=== PATIENT | female | born 1995 ===

== ENCOUNTER 2016-12-29 16:04 | Inpatient (IN) ==
[2016-12-29] MEDS ORDERED: MEPERIDINE 50 MG/1 ML VIAL IV PRN (17:46)
[2016-12-29] MEDS ORDERED: ONDANSETRON 4 MG/2 ML VIAL IV PRN (17:46)
--- NOTE | 2016-12-29 17:55 | OB/GYN History & Physical ---
History of Present Illness Chief complaint: In for elective induction of labor. History of present illness: Ms. Kaye is a 21 year old female who is a 3 para 2 living 2. Her ANGIE is 12/28 by late ultrasound. Her estimated gestational age is 40 weeks and 1. The patient presented to the labor department with complaints of irregular uterine contractions. In light of her history the patient will be admitted for elective induction of labor due to term . The risk and benefits of been thoroughly discussed with this patient significant other, plan of care has been discussed with Dr. Arredondo and all parties are in agreement plan. The patient initiated care early at approximately 5 weeks however she did not keep any of her appointments until she was approximately 30 weeks when she resumed her care. After this time her care was routine and uneventful. She received her care through the [facility]. The patient has a history of smoking cigarettes and marijuana. She has had 2 previous vaginal deliveries and the largest infant weighed 7 pounds and 11 ounces. She reported no complications with either . Her last was November 2015. labs: The patient is O+, serologies nonreactive, rubella is immune, hepatitis B negative, HIV negative, the patient was treated for gonorrhea and chlamydia during this , GBS culture status unknown. Review of systems is negative with exception of above. Home Medications Medication Instructions Recorded Confirmed Type No Known Home Medications [No 12/29/16 12/29/16 History Known Home Medications] Allergies Allergy/AdvReac Type Severity Reaction Status Date / Time No Known Allergies Allergy Verified 12/01/16 15:08 12 point system: reviewed and no additional remarkable complaints except as stated Medical,Surgical,& Family Hx - Medical History Medical History: noncontributory Reproductive: No history of: Ectopic , Complication - Surgical History Surgical History: noncontributory Reproductive Surgeries: Patient denies;: Section - Family History Family History: Reports;: Family Diabetes (mgm pgm), Family Hypertension (pgm), Family Stroke (pgm) Denies;: Family Anesthesia Reaction, Family Cancer, Family Heart Disease - Social History Smoking Status: Current every day smoker Have you smoked in the last 12 months: Yes Type of Drug Use: Marijuana Marital Status: Single Lives With:: Significant Other Functional capacity: independent ambulation Exam MEDICAL TYPIST - Constitutional General appearance: no acute distress - Antepartum / Post Antepartum Exam Cervix - Dilatation: 3 cm Effacement: 70% Station: -1 Rupture: Intact Presentation: Vertex Heart Rate: 140s Breast: bilateral: normal Abdomen obstetrics: Present: bowel sounds normal Vagina: Present: normal moisture, discharge Cervix: Present: normal Uterus exam: Present: enlarged Anus/Rectum: Present: normal perianal skin - Respiratory Respiratory exam: Present: clear to auscultation bilaterally - Cardiovascular Cardiovascular exam: Present: regular rate and rhythm - GI/Abdominal GI/Abdominal exam: Present: normal bowel sounds, soft - Extremities Exam Extremities exam: Present: normal inspection - Neurological Exam Neurological exam: Present: alert, oriented X3 - Psychiatric Psychiatric exam: Present: normal affect, normal mood - Skin Skin exam: Present: normal color, warm Assessment and Plan (1) Postmaturity , 40-42 weeks gestation Status: Acute Assessment and plan: Admit IV fluids IV Pitocin per protocol Artificial rupture membranes when appropriate IV antibiotics prophylactically for unknown GBS status Epidural anesthesia if desired Internal monitors if indicated Anticipate Current Visit: Yes
[2016-12-29 18:11] LABS: Basophils % 0.3 % (0.0-0.8); Eosinophils % 0.5 % (0.00-10.9); Hematocrit 31.1 VOL% (35.7-47.0); Hemoglobin 9.8 GM/DL (12.0-16.0); Immature Granulocytes % 0.5 %; Immature Granulocytes Absolute 0.04 #; Lymphocytes # 1.9 10*3/uL (1.4-4.0); Lymphocytes % 24.6 % (21.3-54.2); Mean Corpuscular HGB Conc 31.5 GM/DL (32-36); Mean Corpuscular Hemoglobin 26 PG (27-34); Mean Corpuscular Volume 81.2 FL (87-102); Mean Platelet Volume 10.2 FL (9.6-12.0); Monocytes # 0.6 10*3/uL (0.11-0.8); Neutrophils # 5.2 10*3/uL (1.4-7.4); Neutrophils % 67.1 % (38.7-73.9); Platelet Count 330 T/CUMM (130-400); Red Blood Count 3.83 MC/CUMM (3.8-5.5); Red Cell Distribution Width 16.3 % (9.3-17.3); White Blood Count 7.8 T/CUMM (4-12)
[2016-12-29 18:44] LABS: Albumin 2.7 G/DL (3.4-5.0); Bilirubin,Total 0.6 MG/DL (0.2-1.0); Calcium 8.5 MG/DL (8.5-10.1); Osmolality,Calculated 270.7 MOS/KG (273-304); Total Protein 6.8 G/DL (6.4-8.3); Uric Acid 6.2 MG/DL (2.6-6.0)
[2016-12-29 19:34] LABS: Barbiturates Screen,Urine Negative (Negative); Benzodiazepines Screen,Urine Negative (Negative); Cannabinoid Screen,Urine Positive (Negative); Opiate Screen,Urine Negative (Negative); Phencyclidine Screen,Urine Negative (Negative)
[2016-12-29 20:18] LABS: Apearance,Urine CLOUDY (Clear); Bacteria,Urine Occasional /HPF (Few); Bilirubin,Urine Negative (Negative); Blood, Urine Negative (Negative); Glucose,Urine (UA) Negative (Negative); Ketones,Urine 5 mg/dL (Negative); Mucus,Urine Occasional /LPF (Occasional); Nitrite,Urine Negative (Negative); Protein,Urine Negative; RBC,Urine 2 /HPF (0-4); Squamous Epithelial Cell,Urine Few /HPF (0-10); Urine Color Yellow (Yellow); Urine Specific Gravity 1.015 (1.001-1.035); Urine Urobilinogen < 2.0 EU/DL (0.2-1.0); WBC,Urine 18 /HPF (0-6)
[2016-12-30] MEDS: LACTATED RINGERS 1,000 ML IV SCH ×2 (01:10→05:34)
[2016-12-30] MEDS ORDERED: OXYTOCIN/LR 20 UNIT/1,000 ML BAG IV SCH (04:00)
--- NOTE | 2016-12-30 04:00 | Event Note ---
0345: Artificial rupture membranes performed with clear fluid noted. Vaginal exam performed patient is 4 cm dilated/70% effaced/vertex presenting at a -2 station. She has an epidural and is comfortable.
[2016-12-30] MEDS ORDERED: FAMOTIDINE 20 MG/2 ML VIAL IV ONE (04:45)
[2016-12-30] MEDS ORDERED: fentaNYL 2 MCG/ROPIV 0.2% EPID 150 ML EPIDURAL SCH (04:45)
[2016-12-30] MEDS ORDERED: ePHEDrine 50 MG/ML AMP IV PRN (04:45)
[2016-12-30] MEDS ORDERED: CITRIC ACID/SODIUM CITRATE 30 ML UDCUP PO ONE (04:45)
[2016-12-30 06:53] LABS: Apearance,Urine CLEAR (Clear); Bilirubin,Urine Negative (Negative); Blood, Urine Negative (Negative); Glucose,Urine (UA) Negative (Negative); Ketones,Urine Negative (Negative); Mucus,Urine Occasional /LPF (Occasional); Nitrite,Urine Negative (Negative); Protein,Urine Negative; RBC,Urine 1 /HPF (0-4); Squamous Epithelial Cell,Urine Occasional /HPF (0-10); Urine Color Yellow (Yellow); Urine Specific Gravity 1.012 (1.001-1.035); Urine Urobilinogen < 2.0 EU/DL (0.2-1.0); WBC,Urine 1 /HPF (0-6)
[2016-12-30] MEDS ORDERED: ACETAMINOPHEN/CODEINE 300-30 MG TABLET PO PRN (10:23)
--- NOTE | 2016-12-30 10:31 | Event Note ---
HPI: Ms. Kaye presented to the labor department for induction of labor due to term . The risk and benefits were thoroughly discussed with this patient significant other, plan of care was discussed with Dr. Arredondo and the patient was admitted for induction with Prostin and Pitocin. All parties were in agreement with plan of care. Stage I: The patient was admitted she received IV fluids and Prostin gel per protocol. She progressed in labor with a CAT 1 tracing. Artificial rupture membranes was performed with clear fluid noted. An epidural was obtained for pain control. The patient was subsequently started on IV Pitocin per protocol and she continued to progress in labor with a CAT 1 tracing. She had an uneventful course of labor. Stage II: The patient was complete and complained of pressure and desire to push. She pushed for approximately 5 minutes after which time the 's head was delivered. The mouth and nose suctioned on the perineum. The remainder the was delivered at 837, a viable male was noted. Apgars were 8 at 1 minute 5 minutes. weight was 7 pounds and 2 ounces. A cord pH was obtained and sent to the lab. The was placed on the mom's abdomen for skin to skin bonding. Stage III: A spontaneous delivery of a Rico placenta with a three-vessel cord noted. Placenta was further examined appeared to be grossly intact. The vagina cervix inspected with no tears or lacerations noted. Estimated blood loss is proximal 100 cc. At the time of dictation mother and baby are both in stable condition.
[2016-12-30] MEDS ORDERED: MEASLES/MUMPS/RUBELLA VACCINE 0.5 ML VIAL SUBCUT ONE (11:58)
[2016-12-30] MEDS ORDERED: oxyCODONE/ACETAMINOPHEN 5-325 MG TABLET PO PRN ×2 (11:58)
[2016-12-30] MEDS ORDERED: WITCH HAZEL PADS 100/JAR TOP PRN (11:58)
[2016-12-30] MEDS ORDERED: HYDROCORTISONE 2.5% RECTAL CREAM 30 GM TUBE TOP PRN (11:58)
[2016-12-30] MEDS ORDERED: DIPH/TET/ACEL PERT BOOSTER VACCINE 0.5 ML VIAL IM ONE (11:58)
[2016-12-30] MEDS ORDERED: IBUPROFEN 800 MG TABLET PO PRN (11:58)
[2016-12-30] MEDS ORDERED: BENZOCAINE 20%/MENTHOL 0.5% SPRAY 56 GM CAN TOP PRN (11:58)
[2016-12-30] MEDS ORDERED: LANOLIN 50% CREAM 0.3 OZ TUBE TOP PRN (11:58)
[2016-12-30] MEDS ORDERED: BISACODYL 10 MG SUPP RECTAL PRN (11:58)
[2016-12-30] MEDS ORDERED: RHO(D) IMMUNE GLOBULIN 300 MCG SYRINGE IM ONE (11:58)
[2016-12-30] MEDS ORDERED: ACETAMINOPHEN 325 MG TABLET PO PRN (11:58)
--- NOTE | 2016-12-30 18:12 | Anesthesia Post-Op ---
Anesthesia Post OP - Post Ansesthetic Evaluation Patient seen in post op: Yes Resp: within normal limits CV: within normal limits Mental: within normal limits Temp: within normal limits [id number]: within normal limits Nausea and Vomiting: within normal limits Pain: within normal limits
[2016-12-30] MEDS: DOCUSATE SODIUM 100 MG CAPSULE PO SCH (22:05)
[2016-12-31 06:15] LABS: Basophils % 0.1 % (0.0-0.8); Eosinophils # 0.2 10*3/uL (0.0-0.87); Eosinophils % 2.4 % (0.00-10.9); Hematocrit 27.5 VOL% (35.7-47.0); Hemoglobin 8.8 GM/DL (12.0-16.0); Immature Granulocytes % 0.3 %; Immature Granulocytes Absolute 0.03 #; Lymphocytes # 3.2 10*3/uL (1.4-4.0); Mean Corpuscular Hemoglobin 26 PG (27-34); Mean Corpuscular Volume 79.7 FL (87-102); Mean Platelet Volume 10.3 FL (9.6-12.0); Monocytes # 0.8 10*3/uL (0.11-0.8); Monocytes % 8.6 % (1.7-12.7); Neutrophils # 4.5 10*3/uL (1.4-7.4); Neutrophils % 51.6 % (38.7-73.9); Platelet Count 265 T/CUMM (130-400); Red Blood Count 3.45 MC/CUMM (3.8-5.5); Red Cell Distribution Width 16.1 % (9.3-17.3); White Blood Count 8.7 T/CUMM (4-12)
[2016-12-31] MEDS: DOCUSATE SODIUM 100 MG CAPSULE PO SCH ×2 (09:31→21:39)
--- NOTE | 2016-12-31 09:32 | OB/GYN Progress Note ---
Assessment and Plan (1) Postmaturity , 40-42 weeks gestation Status: Acute Assessment and plan: Admit IV fluids IV Pitocin per protocol Artificial rupture membranes when appropriate IV antibiotics prophylactically for unknown GBS status Epidural anesthesia if desired Internal monitors if indicated Anticipate Current Visit: Yes (2) Vaginal delivery Status: Acute Assessment and plan: Initiate routine orders. Current Visit: Yes CHECKOUT SUPERVISOR - PN: Subj Interval history: Stable with no complaints. Bonding well with . Exam CHECKOUT SUPERVISOR - Constitutional Vitals: Vital Signs Temp Pulse Resp BP Pulse Ox 12/31/16 07:25 96.7 F L 65 18 110/66 97 12/31/16 06:55 20 12/31/16 05:00 18 12/31/16 04:00 96.7 F L 77 18 117/75 99 12/31/16 03:00 18 12/31/16 02:00 20 12/31/16 01:00 20 12/30/16 23:33 97 F L 69 18 98/56 99 12/30/16 20:00 98.7 F 67 20 103/57 98 12/30/16 15:33 97.5 F L 68 18 105/62 98 12/30/16 13:15 69 20 110/68 98 12/30/16 12:15 97 F L 69 20 113/70 100 General appearance: no acute distress - Antepartum / Post Post Exam Breast: bilateral: normal Abdomen obstetrics: Present: bowel sounds normal Vagina: Present: normal moisture, discharge Cervix: Present: normal Uterus exam: Present: enlarged (Fundus firm and midline) - Head Head exam: Present: normal inspection - Respiratory Respiratory exam: Present: clear to auscultation bilaterally - Cardiovascular Cardiovascular exam: Present: regular rate and rhythm - GI/Abdominal GI/Abdominal exam: Present: normal bowel sounds, soft - Extremities Exam Extremities exam: Present: normal inspection - Neurological Exam Neurological exam: Present: alert, oriented X3 - Psychiatric Psychiatric exam: Present: normal affect, normal mood - Skin Skin exam: Present: normal color, warm Results - Labs CBC & BMP: 12/31/16 05:37 12/29/16 17:58
[2016-12-31] MEDS: FERROUS SULFATE 325 MG TABLET PO SCH ×2 (15:07→21:39)
[2017-01-01 07:48] VITALS: BP 117/75
--- NOTE | 2017-01-01 09:07 | Discharge Summary ---
Hospital Course - Hospital Course Hospital Course: Ms. Kaye presented to the labor department for elective induction of labor due to term . She subsequently delivered a viable with no complications. She is followed a normal course and she is done well. Her bleeding is minimal with no odor. Her fundus is firm and midline. Her perineum is intact with no edema. She is bonding well with her infant. Contraception options has been discussed with this patient and she is unsure of a method at this time. She will be discharged home prescriptions for pain and a follow-up appointment in our office. Diagnosis - Discharge Diagnosis (1) Postmaturity , 40-42 weeks gestation Status: Acute (2) Vaginal delivery Status: Acute Specialty Discharge - Follow Up or Referrals Follow up with: Aniya Arredondo MD [Physician] - 02/12/17 9:15 am Discharge Plan - Discharge Data Disposition: Disch To Home/Self Care Condition at Discharge: Stable Discharge Diet: advance to your usual diet, regular diet Activity: resume usual activities as tolerated Hygiene: no restrictions Weight Bearing at Discharge: weight bear as tolerated Driving: no restrictions Contact your physician if you experience:: fever over 101, pain uncontrolled by pain medications - Discharge Medications New Ibuprofen Tab [Motrin Tab] 800 mg PO Q6H PRN #30 tablet PRN Reason: Pain Moderate (4-7) Acetamin/Codeine 300-30 Tab [Tylenol/Codeine #3] 2 tablet PO Q4H PRN #20 tablet PRN Reason: Pain Mild (1-3) Ferrous Sulfate Tab [Feosol Original Tab] 325 mg PO BID #60 tablet - Follow Up or Referral Follow Up: Aniya Arredondo MD [Physician] - 02/12/17 9:15 am - Forms/Instructions Instructions: Vaginal Delivery (DC), Bleeding (DC) Exam - Constitutional Vitals: Period Temp Pulse Resp BP Sys/Baxter Pulse Ox Last 24 Hr 96.7 F-97.5 F 67-77 16-20 96-117/55-75 96-98 General appearance: no acute distress - Respiratory Respiratory exam: Present: clear to auscultation bilaterally - Cardiovascular Cardiovascular exam: Present: regular rate and rhythm - GI/Abdominal GI/Abdominal exam: Present: normal bowel sounds, soft - Extremities Exam Extremities exam: Present: normal inspection - Neurological Exam Neurological exam: Present: alert, oriented X3 - Psychiatric Psychiatric exam: Present: normal affect, normal mood - Skin Skin exam: Present: normal color, warm DS: Provider Date of admission: 12/29/16 17:47 Primary care physician: Jamee Wetzel MD Attending physician on admission: Aniya Arredondo MD Consults: 12/29/16 17:47 Consult to Anesthesiology [CONS] Routine Consulting Provider: Reason for Anesthesiology: Epidural Consult Comment: Epidural for pain managment 12/30/16 11:58 Consult to Table Assembler [CONS] Routine Consult Table Assembler: Breast Feeding 12/30/16 23:13 Consult to Case Mgmt/Social Srvs [CONS] Routine Reason for Case Mgmt/Social Srvs: Other Consult Comment: Post- with positive UDS Discharging clinician: Perla Hanson CNM Expected date of discharge: 01/01/17
[2017-01-01] MEDS: FERROUS SULFATE 325 MG TABLET PO SCH (10:23)
[2017-01-01] MEDS: DOCUSATE SODIUM 100 MG CAPSULE PO SCH (10:23)
== END 2017-01-01 12:20 | disposition home or self-care (01) | DRG 560 ==
LOC: N.LDOUT 16:04 → N.LD 16:06 → N.OB 12-30 11:51
PROVIDERS: ADMIT Obstetrics & Gynecology; ATTEND Obstetrics & Gynecology

== ENCOUNTER 2017-12-10 09:55 | Inpatient (IN) ==
[2017-12-10] MEDS ORDERED: ONDANSETRON 4 MG/2 ML VIAL ONE (10:06)
[2017-12-10] MEDS ORDERED: BUTORPHANOL 1 MG/ML VIAL ONE (10:06)
[2017-12-10] MEDS ORDERED: ONDANSETRON 4 MG/2 ML VIAL IV PRN (10:07)
[2017-12-10] MEDS ORDERED: BUTORPHANOL 1 MG/ML VIAL IV PRN (10:07)
[2017-12-10] MEDS ORDERED: OXYTOCIN/LR 20 UNIT/1,000 ML BAG IV ONE ×3 (10:08→18:14)
[2017-12-10] MEDS ORDERED: LACTATED RINGERS 1,000 ML IV SCH (10:30)
[2017-12-10 10:41] LABS: Basophils % 0.3 % (0.0-0.8); Eosinophils # 0.1 10*3/uL (0.0-0.87); Eosinophils % 1.2 % (0.00-10.9); Hematocrit 29.7 VOL% (35.7-47.0); Immature Granulocytes % 0.5 %; Immature Granulocytes Absolute 0.04 #; Lymphocytes # 1.9 10*3/uL (1.4-4.0); Lymphocytes % 25.3 % (21.3-54.2); Mean Corpuscular HGB Conc 30.3 GM/DL (32-36); Mean Corpuscular Hemoglobin 24 PG (27-34); Mean Corpuscular Volume 77.5 FL (87-102); Mean Platelet Volume 10.6 FL (9.6-12.0); Monocytes # 0.4 10*3/uL (0.11-0.8); Monocytes % 5.6 % (1.7-12.7); Neutrophils # 5.2 10*3/uL (1.4-7.4); Neutrophils % 67.1 % (38.7-73.9); Platelet Count 312 T/CUMM (130-400); Red Blood Count 3.83 MC/CUMM (3.8-5.5); Red Cell Distribution Width 19.2 % (9.3-17.3); White Blood Count 7.7 T/CUMM (4-12)
[2017-12-10 10:55] LABS: Alanine Aminotransferase 12 U/L (13-56); Albumin 2.4 G/DL (3.4-5.0); Alkaline Phosphatase 202 U/L (45-117); Aspartate Amino Transferase 16 U/L (0-37); Bilirubin,Total < 0.39 MG/DL (0.2-1.0); Blood Urea Nitrogen 6 MG/DL (7-18); Calcium 7.8 MG/DL (8.5-10.1); Glucose 82 MG/DL (74-106); Osmolality,Calculated 279.1 MOS/KG (273-304); Potassium 3.7 MMOL/L (3.5-5.1); Sodium 142 MMOL/L (136-145); Total Protein 6.4 G/DL (6.4-8.3)
[2017-12-10] MEDS ORDERED: DIPH/TET/ACEL PERT BOOSTER VACCINE 0.5 ML VIAL IM ONE (13:26)
[2017-12-10] MEDS ORDERED: BENZOCAINE 20%/MENTHOL 0.5% SPRAY 56 GM CAN TOP PRN (13:26)
[2017-12-10] MEDS ORDERED: MEASLES/MUMPS/RUBELLA VACCINE 0.5 ML VIAL SUBCUT ONE (13:26)
[2017-12-10] MEDS ORDERED: HYDROCORTISONE 2.5% RECTAL CREAM 30 GM TUBE TOP PRN (13:26)
[2017-12-10] MEDS ORDERED: oxyCODONE/ACETAMINOPHEN 5-325 MG TABLET PO PRN ×2 (13:26)
[2017-12-10] MEDS ORDERED: ACETAMINOPHEN 325 MG TABLET PO PRN (13:26)
[2017-12-10] MEDS ORDERED: RHO(D) IMMUNE GLOBULIN 300 MCG SYRINGE IM ONE (13:26)
[2017-12-10] MEDS ORDERED: ACETAMINOPHEN/CODEINE 300-30 MG TABLET PO PRN (13:26)
[2017-12-10] MEDS ORDERED: WITCH HAZEL PADS 100/JAR TOP PRN (13:26)
[2017-12-10] MEDS ORDERED: LANOLIN 50% CREAM 0.3 OZ TUBE TOP PRN (13:26)
[2017-12-10] MEDS ORDERED: IBUPROFEN 800 MG TABLET PO PRN (13:26)
[2017-12-10] MEDS ORDERED: BISACODYL 10 MG SUPP RECTAL PRN (13:26)
[2017-12-10] MEDS: DOCUSATE SODIUM 100 MG CAPSULE PO SCH (21:06)
[2017-12-11 08:04] LABS: Basophils % 0.1 % (0.0-0.8); Eosinophils # 0.1 10*3/uL (0.0-0.87); Eosinophils % 1.5 % (0.00-10.9); Hematocrit 22.5 VOL% (35.7-47.0); Immature Granulocytes % 0.7 %; Immature Granulocytes Absolute 0.05 #; Lymphocytes # 2.5 10*3/uL (1.4-4.0); Lymphocytes % 33.2 % (21.3-54.2); Mean Corpuscular HGB Conc 30.7 GM/DL (32-36); Mean Corpuscular Hemoglobin 24 PG (27-34); Mean Corpuscular Volume 76.8 FL (87-102); Mean Platelet Volume 10.4 FL (9.6-12.0); Monocytes # 0.6 10*3/uL (0.11-0.8); Monocytes % 8.5 % (1.7-12.7); Neutrophils # 4.3 10*3/uL (1.4-7.4); Platelet Count 251 T/CUMM (130-400); Red Blood Count 2.93 MC/CUMM (3.8-5.5); Red Cell Distribution Width 19.1 % (9.3-17.3); White Blood Count 7.6 T/CUMM (4-12)
[2017-12-11 08:06] LABS: Hemoglobin 6.9 GM/DL (12.0-16.0)
[2017-12-11] MEDS: DOCUSATE SODIUM 100 MG CAPSULE PO SCH ×2 (09:44→22:49)
[2017-12-12] MEDS: DOCUSATE SODIUM 100 MG CAPSULE PO SCH (09:36)
[2017-12-12 10:39] VITALS: BP 117/75
[2017-12-12] MEDS ORDERED: DIPH/TET/ACEL PERT BOOSTER VACCINE 0.5 ML VIAL IM ONE (11:44)
== END 2017-12-12 13:30 | disposition home or self-care (01) | DRG 560 ==
LOC: N.LDOUT 09:55 → N.LD 09:57 → N.OB 12:36
PROVIDERS: ADMIT Obstetrics & Gynecology; ATTEND Obstetrics & Gynecology